=== PATIENT | male | born 1945 | race African-American/Black ===

== ENCOUNTER 2017-04-05 07:04 | Emergency (ER) | payer MEDICARE, OTHER ==
[2017-04-05 07:35] LABS: ADD MAN DIFF? NO
[2017-04-05] MEDS: ASPIRIN ENTERIC COATED 325 MG TABLET.DR. PO (07:40)
[2017-04-05] MEDS: DEXAMETHASONE SOD PHOS 20 MG/5 ML VIAL. IV (07:40)
[2017-04-05 07:41] LABS: BASO # 0.1 x10^3/uL (0.0-0.2); BASO % 2 % (0-3); EOS # 0.1 x10^3/uL (0.0-0.7); EOS % 3 % (0-3); HEMATOCRIT 46.3 % (39.0-53.0); HEMOGLOBIN 15.3 g/dL (13.0-17.5); LYMPH # 1.2 x10^3/uL (1.0-4.8); LYMPH % 30 % (24-48); MEAN CORPUSCULAR HEMOGLOBIN 31 pg (25-35); MEAN CORPUSCULAR HGB CONC 33 g/dL (31-37); MEAN CORPUSCULAR VOLUME 94 fL (79-100); MONO # 0.5 x10^3/uL (0.0-1.1); MONO % 11 % (0-9); NEUT # 2.2 x10^3uL (1.8-7.7); NEUT % 54 % (31-73); PLATELET COUNT 135 x10^3/uL (140-400); RED BLOOD COUNT 4.95 x10^6/uL (4.30-5.70); RED CELL DISTRIBUTION WIDTH 13.9 % (11.5-14.5); WHITE BLOOD COUNT 4.1 x10^3/uL (4.0-11.0)
[2017-04-05 07:53] LABS: INR 1.1 (0.8-1.1); PROTHROMBIN TIME PATIENT 13.4 SEC (11.7-14.0)
[2017-04-05 07:54] LABS: ANION GAP 10 (6-14); BLOOD UREA NITROGEN 11 mg/dL (8-26); BUN/CREATININE RATIO 8 (6-20); CARBON DIOXIDE 26 mmol/L (21-32); CHLORIDE 106 mmol/L (98-107); CREATININE 1.3 mg/dL (0.7-1.3); GFR 66.2; GLUCOSE 114 mg/dL (70-99); PARTIAL THROMBOPLASTIN TIME 32 SEC (24-38); POTASSIUM 4.1 mmol/L (3.5-5.1); SODIUM 142 mmol/L (136-145)
[2017-04-05 07:58] LABS: D-DIMER 0.37 ug/mlFEU (0.00-0.50); INFLUENZA A PATIENT NEGATIVE (NEGATIVE); INFLUENZA B PATIENT NEGATIVE (NEGATIVE); OBC FLU VALID
[2017-04-05] MEDS: IPRATRPIUM/ALBUTEROL 0.5/2.5MG 3 ML NEBU. NEB (07:58)
[2017-04-05 08:00] LABS: ALBUMIN/GLOBULIN RATIO 1.1 (1.0-1.7); ALK PHOS 101 U/L (46-116); ALT (SGPT) 51 U/L (16-63); AST (SGOT) 37 U/L (15-37); LIPASE 126 U/L (73-393); MAGNESIUM 2.2 mg/dL (1.8-2.4); TOTAL BILIRUBIN 0.6 mg/dL (0.2-1.0); TOTAL PROTEIN 7.8 g/dL (6.4-8.2)
[2017-04-05 08:02] LABS: LACTIC ACID 0.8 mmol/L (0.4-2.0)
[2017-04-05 08:03] LABS: TROPONINI < 0.017 ng/mL (0.000-0.055)
[2017-04-05 08:05] LABS: NT-PRO BNP 28 pg/mL (0-124)
== END 2017-04-05 10:36 | disposition home or self-care (01) ==
LOC: ER 07:04
DX: J40 Bronchitis, not specified as acute or chronic (principal); R07.89 Other chest pain; R04.2 Hemoptysis; Z79.82 Long term (current) use of aspirin
CPT/HCPCS: 36415; 71045; 80053; 83605; 83690; 83735; 83880; 84484; 85025; 85379; 85610; 85730; 87804; 87804-59; 93005; 94640; 96374; 99285-25; J1100; J7620

== ENCOUNTER → 2017-04-20 | Outpatient (CLI) | payer MEDICARE, OTHER ==
[~2017-04-20] MED LIST: CONTRAST GIVEN MC
[2017-04-20] MEDS: IOHEXOL 300 MG/ML 100ML VIAL. IV ×2 (08:51)
== END | disposition home or self-care (01) ==
LOC: US 09:21
DX: K76.0 Fatty (change of) liver, not elsewhere classified (principal); Z86.711 Personal history of pulmonary embolism; Z87.891 Personal history of nicotine dependence
CPT/HCPCS: 71275; 93970; Q9967

== ENCOUNTER → 2017-04-30 | Outpatient (CLI) | payer OTHER, MEDICARE ==
[2017-04-30] MEDS: REGADENOSON 0.4 MG/5 ML DISP.SYRIN. IV (09:45)
== END | disposition home or self-care (01) ==
LOC: NM 09:19
DX: R07.9 Chest pain, unspecified (principal); R06.00 Dyspnea, unspecified
CPT/HCPCS: 78452; 93017; 96374; 96375; 96376; A9500; J2785

== ENCOUNTER 2018-10-04 16:45 | Emergency (ER) | payer OTHER, MEDICARE ==
[~2018-10-04] VITALS: Ht 172.7 cm; Wt 95.3 kg
[~2018-10-04 16:45] MED LIST changes: +ALBU2.5V8 INH; +ASPI-630 PO; -CONTRAST GIVEN MC; +OMEP20CA10 PO
[2018-10-04 17:20] VITALS: BP 137/63
--- NOTE | 2018-10-04 17:29 | PHYS DOC ---
Past Medical History Past Medical History: GERD Past Surgical History: Cancer Surgery Additional Past Surgical Histo: SURGERY FOR COLON CA 1982 Alcohol Use: None Drug Use: None Adult General Chief Complaint Chief Complaint: SORE THROAT HPI HPI Patient is a pleasant 73-year-old male who presents to the emergency department for evaluation. He states that on Thursday, he went to eat a cookie, and there was apparently a plastic water bottle That was at the base of the cookie. The patient did not realizes, and put the cookie in his mouth, and initially thought there was a hard piece of candy in the cookie, so he swallowed the water bottle. This caused him to gag, and he coughed up a water bottle cap in its entirety. However, he has had some throat soreness and irritation since that time. He denies any shortness of breath, difficulty breathing, voice changes, cough, or difficulty breathing. Swallowing seems to worsen his irritation, there are no alleviating factors to his symptoms. Review of Systems Review of Systems Constitutional: Denies fever or chills [] Eyes: Denies change in visual acuity, redness, or eye pain [] HENT: Denies nasal congestion or otalgia [] Respiratory: Denies cough or shortness of breath [] Integument: Denies rash or skin lesions [] Neurologic: Denies headache, focal weakness or sensory changes [] Allergies Allergies Allergies Coded Allergies Type Severity Reaction Last Updated Verified No Known Drug Allergies 09/14/13 No Physical Exam Physical Exam PHYSICAL EXAM: CONSTITUTIONAL: Well developed, well nourished HEAD: normocephalic, atraumatic EENT: PERRL, EOMI. Conjunctivae normal color, sclerae non-icteric; moist mucous membranes. The oropharynx is nonerythematous. There is no foreign body. There is no stridor. NECK: Supple, non-tender; no meningismus. LUNGS: Lungs CTA, breathing even and unlabored. Normal air movement. HEART: Regular rate and rhythm, no murmur SKIN: No rash; no diaphoresis NEURO: Alert; normal speech and cognition; CN's grossly intact; strength grossly intact without focal deficit. Current Patient Data Vital Signs Vital Signs Date Time Temp Pulse Resp B/P (MAP) Pulse Ox O2 Delivery O2 Flow Rate FiO2 10/04/18 17:20 98.4 55 12 137/63 (87) 97 Room Air 98.4 EKG EKG [] Radiology/Procedures Radiology/Procedures [ER physician preliminary neck soft tissue x-ray is unremarkable for any acute abnormality.] Course & Med Decision Making Course & Med Decision Making Pertinent Imaging studies reviewed. (See chart for details) []Patient remains stable. I discussed test results, home care plan with warm liquids and [id number] analgesics as needed, the need for close follow-up, and return precautions. Dragon Disclaimer Dragon Disclaimer This electronic medical record was generated, in whole or in part, using a voice recognition dictation system. Departure Departure Impression: Primary Impression: Pharyngitis Disposition: HOME, SELF-CARE Condition: STABLE RASHAD WHITLOCK MD Oct 04, 2018 17:29
--- NOTE | 2018-10-05 04:31 | RAD ---
NECK SOFT TISSUE Clinical Indication: Possible foreign body. Comparison: None. Findings: The prevertebral soft tissues are normal. The epiglottis is normal. Normal subglottic shouldering. No radiopaque foreign body is identified. The patient is edentulous. Straightening of normal cervical lordosis. There is disc space narrowing and degenerative endplate spurring in the visualized cervical spine. The upper lungs are clear. IMPRESSION: No radiopaque foreign body. Electronically signed by: Eddie Moreno MD (10/05/2018 4:28 AM) [facility]
== END 2018-10-04 18:07 | disposition home or self-care (01) ==
LOC: ER 16:45
DX: J02.9 Acute pharyngitis, unspecified (principal); K21.9 Gastro-esophageal reflux disease without esophagitis; Z85.038 Personal history of other malignant neoplasm of large intestine
CPT/HCPCS: 70360; 99284

== ENCOUNTER 2019-01-23 15:26 | Emergency (ER) | payer OTHER, MEDICARE ==
[~2019-01-23] VITALS: Ht 172.7 cm; Wt 97.1 kg
[2019-01-23 15:39] VITALS: BP 210/102
[2019-01-23] MEDS ORDERED: HYDROcodone/APAP 5/325MG 1 TAB TABLET PO ONE (15:45)
[2019-01-23] MEDS ORDERED: AMOXICILLIN 250 MG CAPSULE. PO ONE (15:45)
--- NOTE | 2019-01-23 15:45 | PHYS DOC ---
Past Medical History Past Medical History: No Pertinent History, GERD Past Surgical History: Cancer Surgery Additional Past Surgical Histo: SURGERY FOR COLON CA 1982 Alcohol Use: None Drug Use: None Adult General Chief Complaint Chief Complaint: DENTAL PROBLEM HPI HPI Patient is a 73 year old male patient who presents to the ED today complaining of dental pain that began this morning. Patient rates the pain at 10 out of 10, describes the pain as sharp and constant. Denies any fever or trismus. Denies any exacerbating or relieving factors. Review of Systems Review of Systems Constitutional: Denies fever or chills [] HENT: Reports dental pain. Denies nasal congestion or sore throat [] Musculoskeletal: Denies back pain or joint pain [] Integument: Denies rash or skin lesions [] Neurologic: Denies headache, focal weakness or sensory changes [] All other systems were reviewed and found to be within normal limits, except as documented in this note. Current Medications Current Medications Current Medications Medications (Trade) Dose Ordered Sig/Pradeep Start Time Stop Time Status Last Admin Dose Admin Acetaminophen/ Hydrocodone Bitart (Lortab 5/325) 1 tab 1X ONCE 01/23/19 15:45 01/23/19 15:46 DC Amoxicillin (Amoxil) 500 mg 1X ONCE 01/23/19 15:45 01/23/19 15:46 DC Allergies Allergies Allergies Coded Allergies Type Severity Reaction Last Updated Verified No Known Drug Allergies 09/14/13 No Physical Exam Physical Exam Constitutional: Well developed, well nourished, no acute distress, non-toxic appearance. [] HENT: Normocephalic, atraumatic, bilateral external ears normal, oropharynx moist, no oral exudates, nose normal. [] Missing almost all his teeth, four teeth left on the lower gum appear decayed and infected. Eyes: PERRLA, EOMI, conjunctiva normal, no discharge. [] Neck: Normal range of motion, no tenderness, supple, no stridor. [] Cardiovascular:Heart rate regular rhythm, no murmur [] Lungs & Thorax: Bilateral breath sounds clear to auscultation [] Abdomen: Bowel sounds normal, soft, no tenderness, no masses, no pulsatile masses. [] Skin: Warm, dry, no erythema, no rash. [] Back: No tenderness, no CVA tenderness. [] Extremities: No tenderness, no cyanosis, no clubbing, ROM intact, no edema. [] Neurologic: Alert and oriented X 3, normal motor function, normal sensory function, no focal deficits noted. [] Psychologic: Affect normal, judgement normal, mood normal. [] Current Patient Data Vital Signs Vital Signs Date Time Temp Pulse Resp B/P (MAP) Pulse Ox O2 Delivery O2 Flow Rate FiO2 01/23/19 15:39 98.8 76 16 210/102 (138) 99 Room Air 98.8 EKG EKG [] Radiology/Procedures Radiology/Procedures [] Course & Med Decision Making Course & Med Decision Making Pertinent Labs and Imaging studies reviewed. (See chart for details) This is a 73-year-old male patient presenting to the ED today with infected dental caries. Discharge him on amoxicillin. Follow-up with the dentist in the course of next week. Dragon Disclaimer Dragon Disclaimer This electronic medical record was generated, in whole or in part, using a voice recognition dictation system. Departure Departure Impression: Primary Impression: Infected dental caries Disposition: HOME, SELF-CARE Condition: STABLE Referrals: NO PCP (PCP) Follow-up with your dentist in the course of this week or next week Patient Instructions: Dental Caries Additional Instructions: You were evaluated in the emergency room for dental infection, we put you on antibiotics, take them as prescribed until completed. Follow-up with your dentist in the next 1-2 weeks. Scripts Amoxicillin (AMOXICILLIN) 875 Mg Tablet 1 TAB PO BID, #14 TAB Prov: JENNIFER MCDOWELL APRN 01/23/19 Hydrocodone/Apap 5-325 (NORCO 5-325 TABLET) 1 Each Tablet 1 TAB PO Q6-8HRS PRN for PAIN, #40 TAB Prov: JENNIFER MCDOWELL APRN 01/23/19 JENNIFER MCDOWELL APRN Jan 23, 2019 15:45
[2019-01-23] MEDS ORDERED: HYDR-3164 PO (16:03)
[2019-01-23] MEDS ORDERED: AMOX875T PO (16:03)
== END 2019-01-23 16:09 | disposition home or self-care (01) ==
LOC: ER 15:26
DX: K02.9 Dental caries, unspecified (principal); K08.89 Other specified disorders of teeth and supporting structures; K21.9 Gastro-esophageal reflux disease without esophagitis
CPT/HCPCS: 99283